=== PATIENT | male | born 1975 | race Caucasian/White ===

== ENCOUNTER 2025-04-11 15:32 | Inpatient (IN) | payer BC, SELFPAY ==
[2025-04-11] VITALS (20 sets, daily range): BP systolic 110–133; BP diastolic 69–93; BMI 23.7
--- NOTE | 2025-04-11 10:12 | ED.GENMED ---
History of Present Illness
<Gilberto Foote PA-C - Last Filed: 04/11/25 15:32>
General
Chief Complaint: Chest Pain
Source: patient and physician
Time Seen by Provider: 04/11/25 10:01
History of Present Illness
History of Present Illness:
49-year-old male with past medical history of CAD status post 2 previous MIs with cardiac stenting and balloon angioplasty presenting to the emergency department for evaluation of 3+ weeks of midsternal chest pain accompanied with shortness of
breath and dyspnea on exertion, symptoms worsening with exertion, contacted his office professional who directed him to the ER today with anticipation of being admitted for cardiac catheterization. Patient reports that presently his pain is about an 8 or
9 out of 10 describing it to be as if something were inserted into his chest but currently denying any shortness of breath. Patient reports he is noncompliant with his aspirin regimen as this medication will often give him reflux, unsure as to the
last time when he took aspirin. He denies any fevers, chills, rigors, cough, pleurisy or hemoptysis, lower extremity edema, abdominal pain, nausea or vomiting. Patient has no other concerns at this time.
Past History
<Gilberto Foote PA-C - Last Filed: 04/11/25 15:32>
Past History
ED Past Medical History: CAD, GERD, PR and Other
ED Past Surgical History: Cardiac and Other (cath)
Social History
Tobacco: Non-smoker
Alcohol: Occasional
Drug: None
Personal:
Living: with family
Employment: Employed ([employer])
Family History
Family History: Early CAD (mother 50s)
Review of Systems
<Gilberto Foote PA-C - Last Filed: 04/11/25 15:32>
Review of Systems
All Other Systems: ROS reviewed and negative except as documented in HPI and ROS
Phy Exam
<Gilberto Foote PA-C - Last Filed: 04/11/25 15:32>
Physical Exam
Physical Exam:
GENERAL: Alert , in no apparent distress
HEAD: Normocephalic atraumatic
EYE: conjunctiva clear
NECK: Supple
ENT: o/p clr, mmm.
CARDIAC: Regular rate and rhythm
LUNGS: Clear breath sounds bilaterally, no acute respiratory distress, no wheezes/rales/rhonchi
NEUROLOGICAL: Alert and oriented
SKIN: Warm and dry, skin intact.
MUSCULOSKELETAL: well perfused.
PSYCH: Normal and appropriate interaction.
Scores
<Gilberto Foote PA-C - Last Filed: 04/11/25 15:32>
Heart Failure Risk
Heart Failure Risk Score: Not Applicable
Heart Score for Chest Pain Patients
STEMI patient?: No
History: Highly Suspicious
ECG: Normal
Age: >45 - <65 years
Risk Factors: >/= 3 Risk Factors or History of CAD
Troponin: </= Normal Limit
Heart Score for Chest Pain Patients: 5
Heart Score Risk: 20.3% MACE over next 6 weeks
Withdrawal Assessment of Alcohol
Withdrawal Assessment Completed?: Not applicable
<Wolf Honeycutt DO - Last Filed: 04/11/25 11:26>
Heart Score for Chest Pain Patients
Heart Score for Chest Pain Patients: 5
Heart Score Risk: 20.3% MACE over next 6 weeks
Course
<Gilberto Foote PA-C - Last Filed: 04/11/25 15:32>
Orders/Labs/Results
Orders:
Orders
04/11/25 09:37
EKG [Electrocardiogram (*1)] Urgent
Reason for Study: Chest Pain
EKG- Treatment ONCE
04/11/25 Lunch
Cholesterol Lowering
Cholesterol Lowering: Sodium, 2 Gram
04/11/25 10:02
CR Chest - 2 Views Urgent
Comment:
Reason For Exam: SOB, HUSTON
04/11/25 10:07
Aspirin Chewable [Low Strength Aspirin] 324 mg PO NOW STA
04/11/25 10:10
Nitroglycerin Sublingual [Nitrostat (Sublingual)] 0.4 mg SL [id number] PRN
04/11/25 10:11
Echo 2D MMode Color/Doppler Urgent
Reason for Study: chest pain, HUSTON
04/11/25 10:14
Complete Blood Count/With Diff Urgent
Comprehensive Metabolic Panel Urgent
NT-proBNP Urgent
Troponin I Urgent
04/11/25 10:21
Heparin 4,000 units IV NOW STA
04/11/25 10:30
Heparin 04646 Units/250 ml 25,000 units in 250 ml IV PER PROTOCOL
Weight to be used for heparin protocol in kilograms (kg):: 83.5
Protocol:: Cardiac Tx/Acute Coronary
PTT Goal Range to be used:: PTT 73 to 111 seconds
Order type:: Initial
INITIAL Infusion Dose (UNITS/KG/hr) & then follow protocol:: 15 units/kg/hr
Infusion Dose in UNITS/hr & then follow protocol (UNITS/hr):: 1,250
INFUSION RATE in mL/hr & then follow protocol (mL/hr):: 12.5
PTT less than or equal to 64 seconds:: Increase rate by 200 units/hr (+ 2 mL/hr)
PTT 64.1 to 72.9 seconds:: Increase rate by 100 units/hr (+ 1 mL/hr)
PTT 73 to 111 seconds:: Target Range. No change in rate.
PTT 111.1 to 130.9 seconds:: Decrease rate by 100 units/hr (- 1 mL/hr)
PTT 131 to 199.9 seconds:: HOLD for 1 hr. Then decrease rate by 200 units/hr (- 2 mL/hr)
PTT greater than or equal to 200 seconds:: HOLD for 2 hrs & Notify Provider. Then decrease by 200 units/hr (-
2 mL/hr)
Lab follow-up:: Each change, PTT q6h until 2 consecutive are therapeutic. Then PTT
daily.
04/11/25 11:04
PTT Urgent
Comment: Obtain baseline before beginning heparin infusion if not already collected
Prothrombin Time Urgent
04/11/25 13:38
Heparin 1000 Units/500 ml [Heparin] 1,000 units in 500 ml .ROUTE .STK-MED
Heparin Sodium,Porcine/Ns/Pf [Heparin 2000 Units/1000 ml] 2,000 unit in 1,000 ml .ROUTE .STK-MED
Lidocaine HCl/Pf [Xylocaine-Mpf 1% Vial] 50 mg .ROUTE .STK-MED ONE
Nitroglycerin [Tridil] 1,500 mcg .ROUTE .STK-MED ONE
Verapamil Injectable [Isoptin/Verapamil Injection] 5 mg .ROUTE .STK-MED ONE
04/11/25 13:43
Fentanyl Citrate/Pf [Sublimaze] 100 mcg .ROUTE .STK-MED ONE
Heparin 10,000 units .ROUTE .STK-MED ONE
Midazolam HCl [Versed] 2 mg .ROUTE .STK-MED ONE
04/11/25 14:30
Clopidogrel Bisulfate [Plavix] 600 mg .ROUTE .STK-MED ONE
04/11/25 14:35
Acetaminophen [Tylenol] 650 mg PO Q4HPRN PRN
04/11/25 14:36
Electrocardiogram (*1) Urgent
Reason for Study: Other
Other Reason for Exam: s/p intervention
Comment: dca
CARDIAC REHAB CONSULT Routine
Co-Sign Provider:
Cardiac Rehab & Exercise Evaluation Referral
Type of Cardiac Rehab Referral: Outpatient
Diagnosis: CAD w/ Unstable Angina
Date of Diagnosis/Surgery: 04/11/25
Referring Provider: Wai Driver
[facility] Rehab Exercise Prescription
The above named person is capable of participating in an intensive cardiac rehab exercise therapy program
under the guidance of the [facility] cardiac rehab staff, outpatient registered dieticians and
supervision of a physician.
ICR Program Objectives:
Provide supervised exercise, cooking classes, nutritional counseling and healthy mind-set education to
improve the function/symptom free work capacity to an optimal level as well as control risk factors to
prevent the progression of heart disease. During the supervised exercise therapy session some or all of
the following may be included in the cardiac rehab session: ECG telemetry, BP, heart rate, rate of
perceived exertion, symptoms/tolerance, cholesterol testing and education. Exercise modalities may
include: treadmill, upright or recumbent bike, spin bike, rowing machine, elliptical, recumbent
elliptical, arm-bike machine, recumbent stepper and free weights.
Intensity:
All CR staff will use ACSM guidelines: Most patients will exercise in the following range: Heart Rate
[place] range of 40% to 80% & Oxygen Uptake reserve range 40-80% (VO2R). Peak heart rate and VO2 are
derived from the cardiac rehab submaximal graded exercise test at RPE of 13/14 out of 20. Initial
intensity range: RPE 11 to 14/20 and may expand to 11 to 16/20.
Duration & Frequency:
If appropriate the patient will be progressed up to 40 minutes of exercise therapy. Patients will be
instructed to come three times a week in cardiac rehab and at a home/other gym to achieve optimal
physical activity/exercies i.e. 4000-10,000 steps per day.
Education:
The patient will receive one-on-one education during their orientation, initial exercise evaluation, ITP
reassessments and discharge session. Each exercise session will also include an education class (30-40
minutes).
Activity As Directed
Activity Level: Out of Bed- Chair
Comment: bed/chair rest for 2 hours then out of bed ad lance
Wafer Slicer Procedure As Directed
Cardiac Cath Procedure: percutaneous coronary intervention
Intake/ Output As Directed
Frequency: Per unit guidelines
Notify MD As Directed
Notify physician if: immediately for chest pain or bleeding from access site(s)
Radial Artery Hemostasis Method As Directed
Instructions:: 3 mL out at 2 hour posts placement of band
3 mL out at 2 1/2 hours post placement of band
3 mL out at 3 hours post placement of band
Off at 3 1/2 hours post placement of band
If any oozing or hemotoma occurs:: re-inflate band and call provider
Site Checks As Directed
Check access site for bleeding/hematoma: Yes
Comment: on arrival, Q15min x4, Q30min x2, Q1 hr x2, Q2 hr x2, Q4 hr or per
protocol
Vascular Checks As Directed
Location: distal to access site - pulse check
Frequency: Other
Comment: on arrival, Q15min x4, Q30min x2, Q1 hr x2, Q2 hr x2, Q4 hr or per protocol
Vital Signs As Directed
Frequency: Other
Additional Instructions:: on arrival, Q15min x4, Q30min x2, Q1 hr x2, Q2 hr x2, then Q4 hr or per unit
protocol
04/11/25 14:45
0.9% Sodium Chloride 1000 ml [Nss] 1,000 ml IV PER PROTOCOL
Infusion rate in mL/kg/hr:: 1.5
Infusion rate in mL/hr:: 125
Duration of infusion (hours):: 5
04/11/25 14:46
Admit/Transfer Patient As Directed
Co-Sign Provider:
Level of Care: Inpatient admission
Assign to:: IVU
Physician / Group: Augusto Tamayo
Diagnosis: Chest pain
Reason for Hospitalization: Chest pain, undergoing left heart cath
Expected length of stay greater than two midnights?: Yes
ELOS- Estimated Length of Stay in days: 3
I certify the patient meets the requirements for IP care: Yes
PRN Pain Medication Management As Directed
May give lesser potent ordered pain med per pt: Yes
preference::
Protocol:: Medication orders for pain may be administered in a
manner that supports deferring to patient preference
when the pt is:
- Requesting an ordered lesser potent pain medication.
Least to most potent pain medications are defined
as: acetaminophen < NSAID < tramadol < opioids
(morphine, oxycodone, hydromorphone).
- Requesting a lesser dose of the same medication IF
ORDERED.
- Requesting a less intrusive route of administration
if both routes are prescribed by the provider (PO <
IV).
04/11/25 14:47
Code Status As Directed
Resuscitation Status: Full Code
Bisacodyl [Dulcolax] 10 mg RECTAL [id number] PRN
Docusate W/Senna [Senokot-S] 1 tablet PO BIDPRN PRN
Polyethylene Glycol Powder [Miralax] 17 grams PO DAILYPRN PRN
Activity As Directed
Activity Level: Out of Bed-Early Mobility
Intake/ Output As Directed
Frequency: Per unit guidelines
Vital Signs As Directed
Frequency: Per unit guidelines
Weight As Directed
Frequency: Daily
DX Deep Vein Thrombosis Video Routine
04/11/25 14:54
Troponin I Q6H
04/11/25 Dinner
Cholesterol Lowering
Cholesterol Lowering: Sodium, 2 Gram
04/11/25 16:00
Heparin 5,000 units SC Q8
04/11/25 18:00
Rosuvastatin Calcium [Crestor] 40 mg PO QPM
04/11/25 21:00
Troponin I Q6H
04/12/25 03:00
Troponin I Q6H
04/12/25 06:00
Electrocardiogram (*1) IN AM
Reason for Study: Other
Other Reason for Exam: s/p intervention
Comment: dca
Basic Metabolic Panel IN AM
Cardiovascular Evaluation IN AM
Complete Blood Count/No Diff IN AM
Glycohemoglobin (HgbA1c) IN AM
Magnesium IN AM
04/12/25 08:00
Aspirin Chewable [Low Strength Aspirin] 81 mg PO DAILY
Clopidogrel Bisulfate [Plavix] 75 mg PO DAILY
Abnormal Lab Results
04/11/25 04/11/25 04/11/25
10:14 14:27 14:46
Monocytes % 10.9 H %
(1.7-9.3)
Glucose 103 H mg/dl
(70-99)
POC ACT Low Range 303 H Seconds 360 H Seconds
(116-155) (116-155)
04/11/25
15:08
Monocytes %
Glucose
POC ACT Low Range 294 H Seconds
(116-155)
04/11/25 10:14
04/11/25 10:14
Vital Signs
Initial and Last Documented VS:
Initial Vital Signs
Temp Pulse Resp BP Pulse Ox
98.3 F 64 18 133/84 99
04/11/25 09:52 04/11/25 09:52 04/11/25 09:52 04/11/25 09:52 04/11/25 09:52
Last Documented Vital Signs
Temp Pulse Resp BP Pulse Ox
98.3 F 54 19 125/77 100
04/11/25 09:52 04/11/25 13:30 04/11/25 13:30 04/11/25 12:00 04/11/25 13:15
<Wolf Honeycutt, DO - Last Filed: 04/11/25 11:26>
Orders/Labs/Results
Orders:
Orders
04/11/25 09:37
EKG [Electrocardiogram (*1)] Urgent
Reason for Study: Chest Pain
EKG- Treatment ONCE
04/11/25 Lunch
Cholesterol Lowering
Cholesterol Lowering: Sodium, 2 Gram
04/11/25 10:02
CR Chest - 2 Views Urgent
Comment:
Reason For Exam: SOB, HUSTON
04/11/25 10:07
Aspirin Chewable [Low Strength Aspirin] 324 mg PO NOW STA
04/11/25 10:10
Nitroglycerin Sublingual [Nitrostat (Sublingual)] 0.4 mg SL [id number] PRN
04/11/25 10:11
Echo 2D MMode Color/Doppler Urgent
Reason for Study: chest pain, HUSTON
04/11/25 10:14
Complete Blood Count/With Diff Urgent
Comprehensive Metabolic Panel Urgent
NT-proBNP Urgent
Troponin I Urgent
04/11/25 10:21
Heparin 4,000 units IV NOW STA
04/11/25 10:30
Heparin 95573 Units/250 ml 25,000 units in 250 ml IV PER PROTOCOL
Weight to be used for heparin protocol in kilograms (kg):: 83.5
Protocol:: Cardiac Tx/Acute Coronary
PTT Goal Range to be used:: PTT 73 to 111 seconds
Order type:: Initial
INITIAL Infusion Dose (UNITS/KG/hr) & then follow protocol:: 15 units/kg/hr
Infusion Dose in UNITS/hr & then follow protocol (UNITS/hr):: 1,250
INFUSION RATE in mL/hr & then follow protocol (mL/hr):: 12.5
PTT less than or equal to 64 seconds:: Increase rate by 200 units/hr (+ 2 mL/hr)
PTT 64.1 to 72.9 seconds:: Increase rate by 100 units/hr (+ 1 mL/hr)
PTT 73 to 111 seconds:: Target Range. No change in rate.
PTT 111.1 to 130.9 seconds:: Decrease rate by 100 units/hr (- 1 mL/hr)
PTT 131 to 199.9 seconds:: HOLD for 1 hr. Then decrease rate by 200 units/hr (- 2 mL/hr)
PTT greater than or equal to 200 seconds:: HOLD for 2 hrs & Notify Provider. Then decrease by 200 units/hr (-
2 mL/hr)
Lab follow-up:: Each change, PTT q6h until 2 consecutive are therapeutic. Then PTT
daily.
04/11/25 11:04
PTT Urgent
Comment: Obtain baseline before beginning heparin infusion if not already collected
Prothrombin Time Urgent
04/11/25 13:38
Heparin 1000 Units/500 ml [Heparin] 1,000 units in 500 ml .ROUTE .STK-MED
Heparin Sodium,Porcine/Ns/Pf [Heparin 2000 Units/1000 ml] 2,000 unit in 1,000 ml .ROUTE .STK-MED
Lidocaine HCl/Pf [Xylocaine-Mpf 1% Vial] 50 mg .ROUTE .STK-MED ONE
Nitroglycerin [Tridil] 1,500 mcg .ROUTE .STK-MED ONE
Verapamil Injectable [Isoptin/Verapamil Injection] 5 mg .ROUTE .STK-MED ONE
04/11/25 13:43
Fentanyl Citrate/Pf [Sublimaze] 100 mcg .ROUTE .STK-MED ONE
Heparin 10,000 units .ROUTE .STK-MED ONE
Midazolam HCl [Versed] 2 mg .ROUTE .STK-MED ONE
04/11/25 14:30
Clopidogrel Bisulfate [Plavix] 600 mg .ROUTE .STK-MED ONE
04/11/25 14:35
Acetaminophen [Tylenol] 650 mg PO Q4HPRN PRN
04/11/25 14:36
Electrocardiogram (*1) Urgent
Reason for Study: Other
Other Reason for Exam: s/p intervention
Comment: dca
CARDIAC REHAB CONSULT Routine
Co-Sign Provider:
Cardiac Rehab & Exercise Evaluation Referral
Type of Cardiac Rehab Referral: Outpatient
Diagnosis: CAD w/ Unstable Angina
Date of Diagnosis/Surgery: 04/11/25
Referring Provider: Wai Driver
[facility]ensive [facility] Rehab Exercise Prescription
The above named person is capable of participating in an intensive cardiac rehab exercise therapy program
under the guidance of the [facility] cardiac rehab staff, outpatient registered dieticians and
supervision of a physician.
ICR Program Objectives:
Provide supervised exercise, cooking classes, nutritional counseling and healthy mind-set education to
improve the function/symptom free work capacity to an optimal level as well as control risk factors to
prevent the progression of heart disease. During the supervised exercise therapy session some or all of
the following may be included in the cardiac rehab session: ECG telemetry, BP, heart rate, rate of
perceived exertion, symptoms/tolerance, cholesterol testing and education. Exercise modalities may
include: treadmill, upright or recumbent bike, spin bike, rowing machine, elliptical, recumbent
elliptical, arm-bike machine, recumbent stepper and free weights.
Intensity:
All CR staff will use ACSM guidelines: Most patients will exercise in the following range: Heart Rate
[place] range of 40% to 80% & Oxygen Uptake reserve range 40-80% (VO2R). Peak heart rate and VO2 are
derived from the cardiac rehab submaximal graded exercise test at RPE of 13/14 out of 20. Initial
intensity range: RPE 11 to 14/20 and may expand to 11 to 16/20.
Duration & Frequency:
If appropriate the patient will be progressed up to 40 minutes of exercise therapy. Patients will be
instructed to come three times a week in cardiac rehab and at a home/other gym to achieve optimal
physical activity/exercies i.e. 4000-10,000 steps per day.
Education:
The patient will receive one-on-one education during their orientation, initial exercise evaluation, ITP
reassessments and discharge session. Each exercise session will also include an education class (30-40
minutes).
Activity As Directed
Activity Level: Out of Bed- Chair
Comment: bed/chair rest for 2 hours then out of bed ad lance
Wafer Slicer Procedure As Directed
Cardiac Cath Procedure: percutaneous coronary intervention
Intake/ Output As Directed
Frequency: Per unit guidelines
Notify MD As Directed
Notify physician if: immediately for chest pain or bleeding from access site(s)
Radial Artery Hemostasis Method As Directed
Instructions:: 3 mL out at 2 hour posts placement of band
3 mL out at 2 1/2 hours post placement of band
3 mL out at 3 hours post placement of band
Off at 3 1/2 hours post placement of band
If any oozing or hemotoma occurs:: re-inflate band and call provider
Site Checks As Directed
Check access site for bleeding/hematoma: Yes
Comment: on arrival, Q15min x4, Q30min x2, Q1 hr x2, Q2 hr x2, Q4 hr or per
protocol
Vascular Checks As Directed
Location: distal to access site - pulse check
Frequency: Other
Comment: on arrival, Q15min x4, Q30min x2, Q1 hr x2, Q2 hr x2, Q4 hr or per protocol
Vital Signs As Directed
Frequency: Other
Additional Instructions:: on arrival, Q15min x4, Q30min x2, Q1 hr x2, Q2 hr x2, then Q4 hr or per unit
protocol
04/11/25 14:45
0.9% Sodium Chloride 1000 ml [Nss] 1,000 ml IV PER PROTOCOL
Infusion rate in mL/kg/hr:: 1.5
Infusion rate in mL/hr:: 125
Duration of infusion (hours):: 5
04/11/25 14:46
Admit/Transfer Patient As Directed
Co-Sign Provider:
Level of Care: Inpatient admission
Assign to:: IVU
Physician / Group: Augusto Tamayo
Diagnosis: Chest pain
Reason for Hospitalization: Chest pain, undergoing left heart cath
Expected length of stay greater than two midnights?: Yes
ELOS- Estimated Length of Stay in days: 3
I certify the patient meets the requirements for IP care: Yes
PRN Pain Medication Management As Directed
May give lesser potent ordered pain med per pt: Yes
preference::
Protocol:: Medication orders for pain may be administered in a
manner that supports deferring to patient preference
when the pt is:
- Requesting an ordered lesser potent pain medication.
Least to most potent pain medications are defined
as: acetaminophen < NSAID < tramadol < opioids
(morphine, oxycodone, hydromorphone).
- Requesting a lesser dose of the same medication IF
ORDERED.
- Requesting a less intrusive route of administration
if both routes are prescribed by the provider (PO <
IV).
04/11/25 14:47
Code Status As Directed
Resuscitation Status: Full Code
Bisacodyl [Dulcolax] 10 mg RECTAL [id number] PRN
Docusate W/Senna [Senokot-S] 1 tablet PO BIDPRN PRN
Polyethylene Glycol Powder [Miralax] 17 grams PO DAILYPRN PRN
Activity As Directed
Activity Level: Out of Bed-Early Mobility
Intake/ Output As Directed
Frequency: Per unit guidelines
Vital Signs As Directed
Frequency: Per unit guidelines
Weight As Directed
Frequency: Daily
DX Deep Vein Thrombosis Video Routine
04/11/25 14:54
Troponin I Q6H
04/11/25 Dinner
Cholesterol Lowering
Cholesterol Lowering: Sodium, 2 Gram
04/11/25 16:00
Heparin 5,000 units SC Q8
04/11/25 18:00
Rosuvastatin Calcium [Crestor] 40 mg PO QPM
04/11/25 21:00
Troponin I Q6H
04/12/25 03:00
Troponin I Q6H
04/12/25 06:00
Electrocardiogram (*1) IN AM
Reason for Study: Other
Other Reason for Exam: s/p intervention
Comment: dca
Basic Metabolic Panel IN AM
Cardiovascular Evaluation IN AM
Complete Blood Count/No Diff IN AM
Glycohemoglobin (HgbA1c) IN AM
Magnesium IN AM
04/12/25 08:00
Aspirin Chewable [Low Strength Aspirin] 81 mg PO DAILY
Clopidogrel Bisulfate [Plavix] 75 mg PO DAILY
Abnormal Lab Results
04/11/25 04/11/25 04/11/25
10:14 14:27 14:46
Monocytes % 10.9 H %
(1.7-9.3)
Glucose 103 H mg/dl
(70-99)
POC ACT Low Range 303 H Seconds 360 H Seconds
(116-155) (116-155)
04/11/25
15:08
Monocytes %
Glucose
POC ACT Low Range 294 H Seconds
(116-155)
04/11/25 10:14
04/11/25 10:14
Vital Signs
Initial and Last Documented VS:
Initial Vital Signs
Temp Pulse Resp BP Pulse Ox
98.3 F 64 18 133/84 99
04/11/25 09:52 04/11/25 09:52 04/11/25 09:52 04/11/25 09:52 04/11/25 09:52
Last Documented Vital Signs
Temp Pulse Resp BP Pulse Ox
98.3 F 54 19 125/77 100
04/11/25 09:52 04/11/25 13:30 04/11/25 13:30 04/11/25 12:00 04/11/25 13:15
<Gilberto Foote PA-C - Last Filed: 04/11/25 15:32>
MDM/Problems Addressed
Differential Diagnosis Includes:
ACS/NSTEMI
Valvular dysfunction
Pericarditis/Myocarditis
PTX
PE
Cardiomyopathy
GERD
Muscular chest wall pain
Medication non-compliance
MDM/Problems Addressed:
49-year-old male presenting to the ER at the request of office professional for evaluation of chest pain and exertional dyspnea that have been gradually worsening over the last few weeks. Arrives hemodynamically stable. Currently reporting chest pain.
Will discuss with cardiology however it appears that plan is to take patient to the cardiac Wafer Slicer later today. Will order aspirin. Will discuss with cardiology initiating nitroglycerin and heparin given the ongoing chest pain.
Chronic conditions affecting care: CAD
Acute Exacerbation and/or Progression of Chronic Illness: CAD
<Gilberto Foote PA-C - Last Filed: 04/11/25 15:32>
*Pulse Oximetry
SaO2: 99
Oxygen Mode of Delivery: Room air
Patient hypoxic: no
*EKG
Heart Rate: 50
Rate: bradycardiac
Rhythm: sinus
[place]arson: normal axis
Ischemia: no ischemia
*Hunter Guide Interpretation
Rate: bradycardiac
Heart Rate: 55
Rhythm: sinus
*Critical Care Note
Total Time (30-74mins, 75-104mins- exclusive of procedures): 35
comment:
Critical care statement: A total of 35 minutes of critical care time was provided for this patient. This includes management of unstable vital signs, evaluation of the patient at bedside, reviewing the patient's pertinent medical records, discussion
with consultants, review of old EKGs and review of pertinent medical records. This time with separate from time utilized to perform the aforementioned documented procedures
Data Reviewed
Review of Other/Old Records Reveals: Labs, Records, Testing and Discharge Summary
Source: patient, records and physician
<Gilberto Foote PA-C - Last Filed: 04/11/25 15:32>
Patient Management
Discussion with other providers: Hospitalist and Candy Dipper
Escalation/DeEscalation of care consider admission/obs:
Case discussed with cardiology who is agreeable to initiating the nitroglycerin and heparin. They are also requesting we order an echocardiogram now. They will be down to see the patient. Hospitalist team to admit patient for further evaluation
and treatment
ED Attending Note
<Gilberto Foote PA-C - Last Filed: 04/11/25 15:32>
-
Portions of this chart may have been created with voice recognition software.� Occasional wrong word or��sound alike� substitutions may have occurred due to the inherent limitations of voice recognition software.
<Wolf Honeycutt DO - Last Filed: 04/11/25 11:26>
ED Attending Note
Patient seen and examined by attending physician: Yes
I performed the substantive portion of visit, reviewed & personally made and approve the management plan that is documented in note by myself or DUTCH.: Yes
ED Attending Note:
The patient reports feeling improved. Plan is for cath later today. I evaluated the patient at bedside. Troponin unremarkable.
Discharge Plan
Departure
Patient Disposition: Admit
Date of Disposition: 04/11/25
Time of Disposition: 11:27
Presentation/result/management discussed w/ accepting MD/DO: Hospitalist
Discharge Problem:
ACS (acute coronary syndrome)
Interventions
Interventions:
*Risk Screen - Suicide Last Done: 04/11/25 09:52
*General Assessment Last Done: 04/11/25 10:20
*Neglect/Abuse Screening Last Done: 04/11/25 09:52
*ED- Fall Risk Assessment Last Done: 04/11/25 10:20
*ED COVID-19 Vaccine History Last Done: 04/11/25 09:52
*ED Influenza Vaccine History Last Done: 04/11/25 09:52
*Nursing Disposition Last Done: 04/11/25 13:15
ED- Cardiac Assessment Last Done: 04/11/25 10:00
Discharge Date and Time
Discharge Date/Time: 04/11/25 13:15
--- NOTE | 2025-04-11 10:15 | W.PN.CARDCBS ---
Addendum entered and electronically signed by Evy Camarena MD 04/11/25 16:48:
I saw and examined the patient.
The Healthcare Management's note was reviewed and I agree with the note.
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
progressive dyspnea on exertion and decreased exercise tolerance presenting to the emergency room given worsening symptoms. Initial troponin is negative.
Vital signs and lab work reviewed. On exam patient is well-appearing, no acute distress, regular rate, normal S1 and S2, no murmurs, rubs or gallops, lungs are clear to auscultation bilaterally, 2+ radial pulse, abdomen is soft, nontender,
nondistended with active bowel sounds, warm extremities without significant edema.
Recommendations:
1. Given concerns for possible anginal equivalents and progressively worsening symptoms concerning for unstable angina, we discussed proceeding with heart catheterization to rule out obstructive CAD especially with strong history of premature
coronary artery disease and multiple cardiovascular risk factors.
2. Agree with medical therapy for ACS with daily baby aspirin, statin and IV unfractionated heparin. Emphasized the importance of medication compliance given history of medication nonadherence.
3. Full echocardiogram to assess biventricular function and rule out any significant valvular abnormalities.
4. Further recommendations based on findings of the heart catheterization.
Evy Camarena MD, [facility], [facility]
Original Note:
Today's Communication / Plan
-
Echo pending
Cardiac catheterization today
aspirin, IV heparin
Impression / Plan
-
Please see office note dated 04/10/25
Primary Fuel Cell Repairer: Dr. RYAN Driver
Assessment:
Presentation with HUSTON, decreased exercise tolerance
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
Hypercholesterolemia
Stress echo 04/18/2017: Negative for ischemia at 22 METS of activity, basal septal and basal inferior hypokinesis at rest which augments with exercise, suggesting viability at site of prior VT, low risk stress test
Plan:
- Patient reports approximately 3 weeks ago while he was still in [place] he was up playing a volleyball game with his friends, which he states was very competitive. Afterwards he became markedly short of breath with associated dizziness and
developed a left-sided chest discomfort which feels as though there is an 'object' in his left chest. He reports it has been relatively constant since that time. He states in general he feels better with exerting himself, however since has had
reduced exercise tolerance. He was seen in cardiology office yesterday and was being arranged for an expedited cardiac catheterization, however then developed worsening shortness of breath and came to ER.
- Initial troponin negative
- EKG sinus bradycardia
- Chest x-ray by my review without acute abnormalities noted
- Echo pending
- Plan for cardiac catheterization today. NPO. He has known multivessel CAD as above with first VT at age 31
- Sublingual nitro x 1 in ER did not improve pain
- Received 324 mg aspirin. IV heparin being started in ER
- Further recommendations pending results of cardiac catheterization
Progress Note - Fuel Cell Repairer
Subjective
Date of Service: April 11, 2025
Reports remains with feeling of 'object' in his left chest
Objective
Vital Signs and I&O:
Vital Signs
Temp Pulse Resp BP Pulse Ox
98.3 F 64 22 129/88 98
04/11/25 09:52 04/11/25 10:07 04/11/25 10:07 04/11/25 10:07 04/11/25 10:07
Vital Signs
Temp Pulse Resp BP Pulse Ox
98.3 F 64 22 129/88 98
04/11/25 09:52 04/11/25 10:07 04/11/25 10:07 04/11/25 10:07 04/11/25 10:07
Physical Exam
Physical Exam
GEN: No distress, awake, alert, oriented x3
HEENT: supple, anicteric, mmm, EOMI
LUNGS: CTA bilaterally, no wheezes/rales
CV: Reg and angie, S1/S2, no murmur
ABD: soft, BS+, NT/ND
EXT: No clubbing, cyanosis, edema
NEURO: Gross non-focal
SKIN: Warm, pink, dry. No rash
[2025-04-11 10:24] LABS: Hematocrit 47.6 % (39.0-52.0); Hemoglobin 16.2 g/dL (13.0-18.0); Mean Corp Hgb Conc. 34.0 g/dL (33.0-37.0); Mean Corpuscular Volume 84.5 fL (80.0-94.0); Nucleated Red Blood Cells % 0 % (-); Platelet Count 244 10^3/uL (130-400); Red Cell Dist. Width 12.3 % (11.5-14.5)
[2025-04-11 10:40] LABS: ALT (SGPT) 29 U/L (0-50); AST (SGOT) 25 U/L (17-59); Albumin 4.8 g/dl (3.5-5.0); Alkaline Phosphatase 59 U/L (38-126); Blood Urea Nitrogen 10 mg/dl (9-20); Calcium 9.6 mg/dl (8.4-10.2); Carbon Dioxide 26 mmol/L (22-30); Chloride 104 mmol/L (98-107); Estimated Creatinine Clearance 113 ml/min; Glucose 103 mg/dl (70-99); Potassium 4.3 mmol/L (3.5-5.1); Sodium 136 mmol/L (135-145); Total Protein 7.7 g/dl (6.3-8.2); eGFR > 60.00
[2025-04-11 10:49] LABS: Troponin I < 0.012 ng/ml
[2025-04-11] MEDS: NITROSTAT (SUBLINGUAL) 0.4 MG SL ×3 (10:58→11:37)
[2025-04-11] MEDS: LOW STRENGTH ASPIRIN 324 MG PO (10:58)
[2025-04-11] MEDS: HEPARIN 25000 UNITS/250 ML IV (11:16)
[2025-04-11] MEDS: HEPARIN 4000 UNITS IV (11:17)
[2025-04-11 11:36] LABS: INR 0.95; PT 13.0 Sec (11.4-14.6)
[2025-04-11 11:37] LABS: APTT 29.3 Sec (23.4-35.0)
[2025-04-11 14:34] LABS: ACT-LR - POC 303 Seconds (116-155)
--- NOTE | 2025-04-11 14:49 | HPS.HSE ---
Family Physician
-
Family Physician: * NONE
Chief Complaint
-
Chest pain
History of Present Illness
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 States his symptoms started close to 3 weeks ago while playing volleyball
with friends. Pain is described as midsternal chest pain that is associated with shortness of breath at rest and with exertion. Noted to have worsening symptoms with exertion. Contacted his financial services assistant who directed him to come to the ED.
Continue to have pain, 02/09 at time of arrival. Reports noncompliance with his home medications including aspirin due to reflux symptoms. Denies other symptoms such as fevers or chills, edema, palpitations, GI or urinary issues, bleeding or
bruising. Upon arrival was hemodynamically stable, afebrile, on room air. ECG in the ED showed sinus bradycardia, Q waves in inferior leads. Troponin negative initially, BNP only 20.1, remainder of labs unremarkable. Chest x-ray was
unremarkable. TTE demonstrated preserved LVEF with wall motion abnormalities to the basal and mid inferior septum, mid inferolateral segment and basal inferior segment. Evaluated by cardiology in the ED who plans for cath today. Was started on
full dose aspirin and IV heparin drip in the ED
Medical History
Past Medical History
Past Medical History: Reports Other
Additional Past Medical History:
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
Dyslipidemia
Medication noncompliance
Past Surgical History: Reports Other
Additional Past Surgical History:
PCI of LAD and LCx
Balloon angioplasty of OM and diagonal branch
Social History
Tobacco: Non-smoker
Alcohol: Occasional
Drug: None
Family History
Family History: Not pertinent
Allergies / Home Medications
Allergies reflects when Allergies were last updated in [employer].
Home Medications with original date entered in [employer]
Allergy/Medication List:
Allergies
Allergy/AdvReac Type Severity Reaction Status Date / Time
No Known Allergies Allergy Verified 04/11/25 09:56
Home Medications
Herbal Supplement 1 tab PO DAILY Supplement 04/11/25
Review of Systems
-
History Source: Patient
A 12 point ROS was completed and negative except as noted: Yes
Constitutional: Reports No Symptoms
EENT: Reports No Symptoms
Respiratory: Reports See HPI
Cardiac: Reports See HPI
Abdomen/GI: Reports No Symptoms
: Reports No Symptoms
Musculoskeletal: Reports No Symptoms
Skin: Reports No Symptoms
Neurological: Reports No Symptoms
Endocrine: Reports No Symptoms
Hematologic/Lymphatic: Reports No Symptoms
Physical Exam
Vital Signs
Vital Signs
Temp Pulse Resp BP Pulse Ox
98.3 F 54 19 125/77 100
04/11/25 09:52 04/11/25 13:30 04/11/25 13:30 04/11/25 12:00 04/11/25 13:15
Physical Exam
General: Well Developed, Well Nourished and No Apparent Distress
HEENT: NormoCephalic, Anicteric and Moist mucous membranes
Respiratory: Clear and Non Labored Respirations; No Accessory Resp Muscle Use
Cardiac: S1/S2 and Regular Rhythm; No Tachycardia, Murmur, Rub, Gallop, Peripheral Edema or JVD
GI: Soft, Non Tender, Non Distended and Normal Bowel Sounds
Musculoskeletal: No Clubbing and No Cyanosis
Skin: Warm and Dry; No Rash
Neuro: AO x 3 and Nonfocal/grossly intact; No Tremors
Psych: Calm
Laboratory Results
-
04/11/25 10:14
04/11/25 10:14
Laboratory Results
PT 13.0 Sec (11.4-14.6) 04/11/25 11:04
INR 0.95 04/11/25 11:04
APTT 29.3 Sec (23.4-35.0) 04/11/25 11:04
Total Bilirubin 0.8 mg/dl (0.2-1.3) 04/11/25 10:14
AST 25 U/L (17-59) 04/11/25 10:14
ALT 29 U/L (0-50) 04/11/25 10:14
Alkaline Phosphatase 59 U/L (38-126) 04/11/25 10:14
Troponin I < 0.012 ng/ml 04/11/25 10:14
Data Reviewed
-
Lab Data: Labs Reviewed by me and Discussed with Physician (Cardiology, emergency department)
Impression/Plan
-
#Chest pain
#CAD s/p PCI and PCTA
#Dyslipidemia
-Question missed UT with negative troponin here, 3 weeks of symptoms, Q waves in inferior leads (no acute ST or T wave changes)
-Typical chest pain with exertional worsening; patient noncompliant with aspirin due to symptoms of GERD/indigestion
-Echocardiogram performed in the ED that showed preserved LVEF though significant WMA similar to previous study
-Started on full dose aspirin and IV heparin drip taken to Screw Machine Setter for coronary angiography
-Cardiology ordered lipid panel for morning of 04/12
Plan
-Follow-up [facility] results, may need to involve CT surgery for CABG planning
-Will need to be on antiplatelet therapy indefinitely, DAPT if stent placed today
-Follow-up a.m. labs for LDL, start statin with LDL goal <70
-Will hold off on beta-diana due to resting HR in the 50s at this time
-Monitor on telemetry following Screw Machine Setter
#Sinus bradycardia
-Heart rate low 50s, sinus upon arrival
-Patient is physically fit and well-conditioned, may be related to his conditioning level
-No role for beta-blockade at this time
-Monitor telemetry as above
#GERD
-Not currently on any medications, states he gets symptoms with aspirin use
-Will start as needed famotidine and see if he tolerates antiplatelet therapy better
-May need to consider PPI, OP GI for potential EGD
#Medication noncompliance
Diet: Low-cholesterol after Screw Machine Setter
Thromboprophylaxis: IV heparin drip for now
CODE STATUS: Full code
Disposition: Admit to IVU
[2025-04-11 14:53] LABS: ACT-LR - POC 360 Seconds (116-155)
[2025-04-11 15:18] LABS: ACT-LR - POC 294 Seconds (116-155)
[2025-04-11 15:45] LABS: Troponin I < 0.012 ng/ml
--- NOTE | 2025-04-11 16:00 | PTCARENOTE ---
Patient relieved from the pathology laboratory aide awake and alert times 3. SB HR 40-50's, 120/75. Right TR band in place with 12 cc of air. Oriented to room and call cramer placed in reach
--- NOTE | 2025-04-11 16:11 | CM ---
Chart reviewed. Patient is independent of ADLS, lives with his in [place] here visiting and suppose to fly home tonight. Patient lives in a [address], [address], 0 DME. Plan is to return home. CM to follow
--- NOTE | 2025-04-11 16:45 | ITS.CL.CATH ---
Appliance Worker - Catheterization
Cardiac Catheterization
Procedure Report:
LEFT HEART CATHETERIZATION AND CORONARY INTERVENTION
Date of Procedure: April 11, 2025
Referring: Wai Hurst MD
PROCEDURES:
1. Left heart catheterization, coronary angiogram.
2. Moderate sedation.
3. IV L shockwave.
4. Successful percutaneous coronary artery intervention of a hazy 90% in-stent restenosis in the proximal left circumflex with prior PCI, treated with one 3.5 x 18 mm Medtronic Hansel frontier drug-eluting stent, postdilated using IVUS guidance with
a 3.5 mm NC balloon at high pressures with an excellent angiographic and IVUS based result.
5. Intravascular ultrasound (IVUS)
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
ongoing progressive dyspnea on exertion and decreased exercise tolerance presenting to the emergency room given worsening symptoms. Initial troponin is negative. Given concern for progressive symptoms that could be anginal equivalent with prior
premature
ACCESS: Right radial artery, 6Fr. sheath, under US guidance.
HEMODYNAMICS : (mmHg)
AO (s/d) : 107/60
LVEDP : 21
No significant gradient across the aortic valve to suggest aortic stenosis.
CORONARY FINDINGS
Dominance: Right
Left Main Trunk (LMT): Large caliber vessel that gives rise to the LAD and LCx branches and is free of angiographic disease.
Left Anterior Descending Artery (LAD): Large caliber vessel that gives off 2 major diagonal branches as it courses along the anterior inter-ventricular groove before wrapping around the cardiac apex. Previously placed mid LAD stent is widely
patent. There is mild diffuse atherosclerotic plaque with left to right collaterals.
Left Circumflex Artery (LCx): Large caliber vessel that gives off 2 major obtuse marginal (OM) branches as it courses along the atrio-ventricular (AV) groove. Proximal left circumflex has a hazy 90% in-stent restenosis which is thought to be the
culprit of presenting symptoms and was intervened upon as noted below. Of small caliber wrangell left circumflex artery provides collaterals to the right posterolateral system.
Right Coronary Artery (RCA): Large caliber dominant vessel that gives rise to the posterior descending artery (RPDA) and postero-lateral ventricular (RPLV) branches distally. There is no difference on chronic total occlusion with robust right to
right collaterals and [id number] collaterals.
CORONARY INTERVENTION: The left coronary artery was selectively engaged using a 6 Lao EBU 3.75 guide catheter. Additional heparin was given to maintain therapeutic ACT throughout the case. A 190 cm 0.014 run-through wire was advanced into the
distal OM branch. The lesion in the proximal left circumflex artery was predilated initially using a 3.0 x 12 mm semicompliant balloon followed by a 3.5 mm NC balloon with some residual stenosis and therefore decision was made to proceed with IV L
shockwave using a 3.5 mm shockwave balloon. All 12 pulses were delivered within the stent at the stenotic portion with good expansion. After IV L shockwave, the lesion was stented using a 3.5 x 18 mm Medtronic Hansel frontier drug-eluting stent and
the stent was postdilated using IVUS guidance with a 3.5 mm NC balloon at high pressures with an excellent angiographic and IVUS based result. Patient was loaded with 60 mg of Plavix at the end of the case. He tolerated the procedure well with no
acute complications.
SEDATION:67 minutes of procedural sedation was utilized. IV Midazolam and IV Fentanyl were administered. An independent medical billing representative was present to assist with and help manage the patient's level of consciousness and physiologic status.
RADIATION SUMMARY: Fluoro Time (min): 15.5, Dose (mGy): 694.7, DAP (Gy.cm2) : 36.5
Closure Device: There were no immediate intra-procedural complications. The sheath was pulled in the laborer bituminous paving and a vascular-band applied to the right wrist for radial artery hemostasis using the patent hemostasis technique.
CONCLUSIONS
1. Successful percutaneous coronary artery intervention of a hazy 90% in-stent restenosis in the proximal left circumflex with prior PCI, treated with one 3.5 x 18 mm Medtronic [place] frontier drug-eluting stent, postdilated using IVUS guidance with a
3.5 mm NC balloon at high pressures with an excellent angiographic and IVUS based result.
2. LVEDP of 21 mmHg.
RECOMMENDATIONS
1. Wean radial band per protocol. Monitor right hand perfusion and for bleeding from the radial site following removal of the vascular-band following trans-radial access.
2. Continue aggressive medical therapy and risk factor modification for secondary CAD prevention.
3. Continue ASA 81 mg daily for life.
4. Continue clopidogrel for at least 12 months of uninterrupted dual anti-platelet therapy given drug-eluting stent (BOSTON) implantation to mitigate the risk of stent thrombosis. This is not to be stopped for any reason without the guidance of a
aviation technician. Strongly emphasized importance of medication compliance.
5. Hydrate with normal saline to mitigate the risk of contrast-induced acute kidney injury.
6. Referral for outpatient cardiac rehab.
7. Follow-up with Dr. Wai hurst.
Evy Camarena MD, [facility], [facility]
Copy to: Dr. Wai hurst
[2025-04-11] MEDS: CRESTOR 40 MG PO (17:20)
[2025-04-11] MEDS: HEPARIN SC (17:40)
[2025-04-11 21:56] LABS: Troponin I 0.060 ng/ml
[2025-04-11] MEDS: TYLENOL 650 MG PO (23:09)
[2025-04-11] MEDS: HEPARIN 5000 UNITS SC (23:09)
--- NOTE | 2025-04-12 00:27 | PTCARENOTE ---
Received pt at change of shift resting in bed. SB with PVC's on tele, HR 40's-50's. TR band removed @ 2010, dressing placed, C/D/I, no bleeding or hematoma noted at this time. pt c/o 1/10 left-sided chest pain when laying flat and 2/10 when laying
on left side. pt states it 'feels muscular because I play volleyball.' EKG obtained, PRN Tylenol administered. [place] CVNIKKI made aware. No further orders at this time. pt reports relief w/ Tylenol and now has no pain. Encouraged pt to call
RN if chest pain reoccurs. Call cramer within reach.
[2025-04-12 03:38] VITALS: BP 114/72
[2025-04-12 04:13] VITALS: BMI 23.2
[2025-04-12 04:39] LABS: Hematocrit 43.3 % (39.0-52.0); Hemoglobin 15.1 g/dL (13.0-18.0); Mean Corp Hgb Conc. 34.9 g/dL (33.0-37.0); Mean Corpuscular Volume 85.1 fL (80.0-94.0); Platelet Count 231 10^3/uL (130-400); Red Cell Dist. Width 12.3 % (11.5-14.5)
[2025-04-12 05:06] LABS: Blood Urea Nitrogen 12 mg/dl (9-20); Calcium 9.3 mg/dl (8.4-10.2); Carbon Dioxide 24 mmol/L (22-30); Chloride 104 mmol/L (98-107); Estimated Creatinine Clearance > 125 ml/min; Glucose 87 mg/dl (70-99); HDL Cholesterol 43 mg/dl; LDL Cholesterol, Calculated 221 mg/dl; Magnesium 1.9 mg/dl (1.6-2.3); Potassium 4.2 mmol/L (3.5-5.1); Sodium 135 mmol/L (135-145); Very Low Density Lipoprotein 37 mg/dl (0-30); eGFR > 60.00
[2025-04-12 05:22] LABS: Troponin I 0.225 ng/ml
[2025-04-12] MEDS: LOW STRENGTH ASPIRIN 81 MG PO (07:48)
[2025-04-12] MEDS: PLAVIX 75 MG PO (07:48)
[2025-04-12] MEDS: HEPARIN 5000 UNITS SC (07:48)
[2025-04-12 07:53] VITALS: BP 127/76
--- NOTE | 2025-04-12 08:46 | W.PN.CARDCBS ---
Addendum entered and electronically signed by Nick Mendez DO 04/12/25 09:44:
I saw and examined the patient.
The Rural Carrier's note was reviewed and I agree with the note.
Comment:
Patient is status post circumflex PCI on 04/11/2025 reporting no chest pain, shortness of breath, or weakness
Telemetry shows sinus bradycardia, sinus rhythm; EKG sinus rhythm without ST-T abnormality with old inferior infarct pattern
A/P as below
Will trend troponin to peak; if downtrending, likely stable for discharge with outpatient follow-up and cardiac rehab. If uptrending, would then recommend trending troponin to peak with plan discharge likely 04/13/2025 if stable and troponin
improving
Continue aspirin, Plavix, Crestor
Monitor on telemetry while admitted
Original Note:
Today's Communication / Plan
-
s/p circ PCI
trend trops to peak
continue asa, plavix, crestor
cardiac rehab
OP cardiac follow up arranged
possible DC to home later today vs in AM
Impression / Plan
-
Please see office note dated 04/10/25
Primary Job Press Operator: Dr. RYAN Driver
Assessment:
Presentation with HUSTON, decreased exercise tolerance
NSTEMI status post in-stent restenosis of proximal left circumflex
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
Hypercholesterolemia
Sinus bradycardia
Medication noncompliance
Stress echo 04/18/2017: Negative for ischemia at 22 METS of activity, basal septal and basal inferior hypokinesis at rest which augments with exercise, suggesting viability at site of prior MA, low risk stress test
Echo 04/11/2025: EF 50 to 55%, basal and mid inferior septum, mid inferolateral segment and basal inferior segment abnormal, no significant valvular disease
Plan:
- Patient presented with complaints of dyspnea on exertion and decreased exercise tolerance over the last several months
- Ruled in for NSTEMI. Status post in-stent circumflex restenosis with stenting. Troponin this morning 0.2. Trend to peak
- continue asa, plavix. reviewed importance of these medications in keeping his stents open
- Remains in sinus bradycardia on review of telemetry overnight. He reports his baseline heart rate is normally in the 40s. No evidence of pauses or high-grade AV block. cannot give BB due to this.
- We discussed importance of medication compliance. He reports he had stopped his outpatient statin as his was concerned about dementia as a result of high-dose statin therapy. He understands the importance of taking this medication moving
forward given his significant genetic predisposition to CAD
- echo results reviewed with patient, as above, EF preserved
- pending trop trend, consider for DC later today vs in AM
- cardiac rehab
- it was discussed with patient yesterday that he should not fly for 1 week
- OP cardiac follow up arranged
Progress Note - Job Press Operator
Subjective
Date of Service: April 12, 2025
no issues overnight. states he feels '10 years younger'
Objective
Labs:
04/12/25 03:52
04/12/25 03:52
Labs
Hgb 15.1 g/dL (13.0-18.0) 04/12/25 03:52
Hct 43.3 % (39.0-52.0) 04/12/25 03:52
Plt Count 231 10^3/uL (130-400) 04/12/25 03:52
PT 13.0 Sec (11.4-14.6) 04/11/25 11:04
INR 0.95 04/11/25 11:04
APTT 29.3 Sec (23.4-35.0) 04/11/25 11:04
Sodium 135 mmol/L (135-145) 04/12/25 03:52
Potassium 4.2 mmol/L (3.5-5.1) 04/12/25 03:52
BUN 12 mg/dl (9-20) 04/12/25 03:52
Creatinine 0.8 mg/dL (0.7-1.3) 04/12/25 03:52
Glucose 87 mg/dl (70-99) 04/12/25 03:52
Troponins
04/11/25 04/11/25 04/11/25
10:14 14:54 21:10
Troponin I < 0.012 < 0.012 0.060 H* D
04/12/25
03:52
Troponin I 0.225 H* D
Vital Signs and I&O:
Vital Signs
Temp Pulse Resp BP Pulse Ox
97.9 F 46 16 127/76 95
04/12/25 03:38 04/12/25 07:53 04/12/25 03:38 04/12/25 07:53 04/12/25 08:35
Vital Signs
Temp Pulse Resp BP Pulse Ox
97.9 F 46 16 127/76 95
04/12/25 03:38 04/12/25 07:53 04/12/25 03:38 04/12/25 07:53 04/12/25 08:35
Intake & Output
04/10/25 04/11/25 04/12/25 04/13/25
07:59 07:59 07:59 07:59
Intake Total 980 / 980
Balance 980 / 980
Physical Exam
Physical Exam
GEN: No distress, awake, alert, oriented x3
HEENT: supple, anicteric, mmm, eomi
LUNGS: CTA B/L, no wheezes/rales
CV: Reg and angie, S1/S2, no murmur
ABD: soft, BS+, NT/ND
EXT: No cyanosis, clubbing, edema
NEURO: Gross non-focal
SKIN: Warm, pink, dry. No rash. R wrist site c/d/i
[2025-04-12 08:54] LABS: Glycohemoglobin (HgbA1c) 5.4 % (4.0-5.6)
[2025-04-12 10:02] LABS: Troponin I 0.270 ng/ml
--- NOTE | 2025-04-12 10:14 | PTCARENOTE ---
Assumed care of patient at the change of shift. Pt AAOX3. Pt denies chest pain/ SOB. SB on nail polish brush machine feeder. Pt asymptomatic. Pox: 97% RA. Call cramer within reach. Plan of care ongoing.
--- NOTE | 2025-04-12 10:27 | W.PN.HOSP.TC ---
Today's Communication/Plan
-
Trend troponin on telemetry
DAPT and statin
Encourage medication compliance
Assessment / Plan
Assessment / Plan
#CAD s/p LCx PCI
#H/O LAD and LCx PCI and PTCA
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
#Dyslipidemia
-Question missed NV with negative troponin here, 3 weeks of symptoms, Q waves in inferior leads (no acute ST or T wave changes)
-Typical chest pain with exertional worsening; patient noncompliant with aspirin due to symptoms of GERD/indigestion
-Echocardiogram performed in the ED that showed preserved LVEF though significant WMA similar to previous study
-Started on full dose aspirin and IV heparin drip taken to Member Service Representative for coronary angiography
-Had LCx PCI performed on 04/11 due to in-stent restenosis
-LDL found to be >200 on labs this morning
Plan
-Continue with DAPT for 1 year
-Continue high intensity statin with LDL goal <70, may need ezetimibe v. PCSK9i
-Follow-up with family doctor and cardiology to consider familial hypercholesterolemia testing
-Will hold off on beta-diana due to resting HR in the 50s at this time
-Trend troponin with serial ECG until troponin level peaks
-Monitor on telemetry while here
#Sinus bradycardia
-Heart rate low 50s, sinus upon arrival
-Patient is physically fit and well-conditioned, may be related to his conditioning level
-No role for beta-blockade at this time
-Monitor telemetry as above
#GERD
-Not currently on any medications, states he gets symptoms with aspirin use
-Will start as needed famotidine and see if he tolerates antiplatelet therapy better
-May need to consider PPI, OP GI for potential EGD
#Medication noncompliance
Diet: Low-cholesterol after Member Service [facility]
Thromboprophylaxis: IV heparin drip for now
CODE STATUS: Full code
Disposition: Possible discharge home today if troponin downtrending
Anticipated Discharge: Within 24 hours
Subjective/Interval History
-
Date of Service: April 12, 2025
Seen and examined at the bedside. No acute events reported overnight. AFVSS this morning
Troponin slightly elevated following LHC yesterday, repeat pending. No events on telemetry
Patient states he feels very well and denies chest pain, dyspnea, anginal equivalents. Eager for discharge from hospital
Objective Data
-
Labs:
Laboratory Results
04/12/25
03:52
WBC 6.9
Hgb 15.1
Hct 43.3
Plt Count 231
Sodium 135
Potassium 4.2
Chloride 104
Carbon Dioxide 24
BUN 12
Creatinine 0.8
Glucose 87
Calcium 9.3
Vital Signs:
Vital Signs
Temp Pulse Resp BP Pulse Ox
98.3 F 46 18 127/76 95
04/12/25 07:45 04/12/25 07:53 04/12/25 07:45 04/12/25 07:53 04/12/25 08:35
I&O
04/11/25 04/12/25 04/13/25
06:59 06:59 06:59
Intake Total 980 / 980
Balance 980 / 980
Review of Systems
-
History Source: Patient
All other systems: Reviewed and negative
Physical Exam
-
General: Well Developed, No Apparent Distress and Comfortable
HEENT: Normocephalic, Atraumatic, Moist Mucous Membranes and Anicteric
Respiratory: Clear to Auscultation and Non Labored Respirations; Negative Accessory Resp Muscle Use
Cardiac: Regular Rhythm and S1/S2; Negative Murmur, Rub, JVD or Gallop
GI: Soft, Nontender, Nondistended and Normal Bowel Sounds
Musculoskeletal: No Clubbing, No Cyanosis and No Edema
Skin: Warm and Dry; Negative Rash
Neuro: AO x 3, Nonfocal/Grossly Intact and Central Nerve's Intact
Psych: Calm
Data Reviewed
-
Labs: Labs Reviewed by me, Discussed with Physician (Cards), Discussed with Patient and Discussed with Family
[2025-04-12 12:43] VITALS: BP 149/93
[2025-04-12 13:43] LABS: Troponin I 0.292 ng/ml
--- NOTE | 2025-04-12 14:45 | W.DCSUMMARY ---
Discharge Summary
Discharge Data
Date of Admission: 04/11/25
Date of Discharge: 04/12/25
Total time spent discharging patient (in min): 31
-
Pending Results: No
Hospital Course
Discharging physician: Augusto Tamayo DO
Discharge disposition: AGAINST MEDICAL ADVICE (patient's prescriptions were still sent to pharmacy despite AMA)
Primary Hospital diagnosis:
Obstructive CAD s/p LCx PCI
In-stent restenosis of previous proximal LCx stent
Medication noncompliance
Dyslipidemia
Chronic discharge diagnoses:
CAD s/p PCI of LAD and LCx
Chronic total occlusion of RCA
Dyslipidemia
Hospital course:
49-year-old male with CAD s/p PCI of his LCx and LAD that presented with chest pain over 3 weeks time. Troponin gradually uptrending, ECGs without acute ischemic change. Underwent echocardiogram that showed wall motion abnormalities consistent
with previous findings. Cardiology was consulted and started him on IV heparin drip prior to coronary angiography. Was taken to the [facility] Super[facility] on 04/11/2025 and was determined to have in-stent restenosis to his proximal LCx stent, was intervened on
with new stent placed. Patient noted to be noncompliant with medications, was started on DAPT, statin and encouraged to remain compliant. LDL came back at 221. 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
for familial hypercholesteremia and possibly PCSK9 if needed. LDL goal <70.
Consultants:
General Cardiology: Nick Adam DO
satellite installer: Evy Camarena MD
Pertinent imaging findings:
Echocardiogram (04/11/2025)
1. Normal left ventricular size and low normal left ventricular function.
2. Ejection fraction is 50-55% by visual assessment.
3. LV Wall Motion: basal and mid inferior septum, mid inferolateral segment, and basal inferior segment are abnormal, as described below.
4. Right ventricular size and systolic function are within normal limits.
5. No significant valvular disease.
6. Compared to a prior transthoracic echocardiogram study from 03/02/16 no significant changes are seen.
Procedure reports:
Left heart catheterization and coronary angiography (04/11/2025)
satellite installer: Evy Camarena MD
Conclusions:
1. Successful percutaneous coronary artery intervention of a hazy 90% in-stent restenosis in the proximal left circumflex with prior PCI, treated with one 3.5 x 18 mm Medtronic Hansel frontier drug-eluting stent, postdilated using IVUS guidance with a
3.5 mm NC balloon at high pressures with an excellent angiographic and IVUS based result.
2. LVEDP of 21 mmHg.
Follow-up:
Family doctor in 1 week, referral provided
Executive Vice President on 05/07/25
Discharge Plan
-
Patient Disposition: Home (Routine Discharge)
Discharge Diagnosis/Procedures: Shockwave with angioplasty and stent to Left Circumflex artery
Condition: Good
Diet: Low Cholesterol
Driving Restrictions: No driving for 24 hours
Bathing Restrictions: None
Blood Work: Repeat lipid panel in 3 months with family doctor
Other Services: Cardiac Rehab
Stand Alone Forms: DC Instructions- Cath/EP Lab
Referrals:
[facility] [Outside] - in less than 1 week
Referral Note: Family doctor referral
Rhonda Thomas PA-C [Specified Professional Personl, Cardiology] - 05/07/25 7:40 am
NONE,* [Family Provider, Internal Medicine]
Additional Discharge Medication Instructions: Take aspirin 81 mg and clopidogrel 75 mg every day for 1 year
Take rosuvastatin 40 mg every night indefinitely
Use nitroglycerin as needed for chest discomfort contact your pipe assembly worker if chest discomfort does not improve after 3 doses
When you run out of these medications contact your family doctor or pipe assembly worker for refills. You need to take these medications indefinitely in order to prevent future heart attacks. If you stop any of these medications you are risk of heart
attack goes up significantly
Prescriptions:
New
rosuvastatin 20 mg Tablet
40 mg PO QPM 30 Days Qty: 60 0RF
aspirin 81 mg Tablet,Chewable
81 mg PO DAILY 30 Days Qty: 30 0RF
nitroglycerin 0.4 mg Tablet, Sublingual
0.4 mg sublingual [id number] PRN (Reason: ANGINA) Qty: 30 0RF
clopidogrel 75 mg Tablet
75 mg PO DAILY 30 Days Qty: 30 0RF
Continued
Herbal Supplement
1 tab PO DAILY
omega-3 fatty acids Capsule
PO
Discontinued
rosuvastatin [Crestor] 40 mg Tablet
40 mg PO DAILY
Care Plan Goals
Care Plan Goals:
Problem: Readiness for enhanced knowledge related to diagnosis and treatment plan
Goal: Understand your diagnosis and treatment plan needs, including medications if applicable.
Instructions: Know your diagnosis, underlying causes and treatment plan options, including medications if applicable. Consult with your health care team to learn about your diagnosis and treatment plan, including medications if applicable.
Discharge Date and Time
Print Language: WOLOF
--- NOTE | 2025-04-12 14:46 | PTCARENOTE ---
Patient has stated he is leaving against medical advice (AMA). Pt AAOX3. Refusing further treatment. Dr. Tamayo notified via TT. Pt has signed AMA form.
== END 2025-04-12 14:30 | disposition left against medical advice (07) | DRG 324 ==
LOC: IVU 15:32
PROVIDERS: Internal Medicine Interventional Cardiology; Nurse Practitioner; Physician Assistant Medical; ADMITTING PHYSICIAN Internal Medicine; EMERGENCY PHYSICIAN Emergency Medicine
PROC: 4A023N7 Measurement of Cardiac Sampling and Pressure, Left Heart, Percutaneous Approach (ICD-10-PCS; 2025-04-11)
PROC: 027034Z Dilation of Coronary Artery, One Artery with Drug-eluting Intraluminal Device, Percutaneous Approach (ICD-10-PCS; 2025-04-11)
PROC: 02F03ZZ Fragmentation in Coronary Artery, One Artery, Percutaneous Approach (ICD-10-PCS; 2025-04-11)
PROC: B2111ZZ Fluoroscopy of Multiple Coronary Arteries using Low Osmolar Contrast (ICD-10-PCS; 2025-04-11)
PROC: B240ZZ3 Ultrasonography of Single Coronary Artery, Intravascular (ICD-10-PCS; 2025-04-11)
DX: T82.855A Stenosis of coronary artery stent, initial encounter (principal); I25.110 Atherosclerotic heart disease of native coronary artery with unstable angina pectoris; Z91.148 Patient's other noncompliance with medication regimen for other reason; E78.5 Hyperlipidemia, unspecified; Y83.1 Surgical operation with implant of artificial internal device as the cause of abnormal reaction of the patient, or of later complication, without mention of misadventure at the time of the procedure; K21.9 Gastro-esophageal reflux disease without esophagitis; I10 Essential (primary) hypertension; Z82.49 Family history of ischemic heart disease and other diseases of the circulatory system; Z53.29 Procedure and treatment not carried out because of patient's decision for other reasons
CPT/HCPCS: 71046; 80048; 80053; 80061; 83036; 83735; 83880; 84484; 85025; 85027; 85347; 85610; 85730; 92972; 92978; 93005; 93306; 93458; 96365; 96366; 99152; 99153; 99291; C1725; C1761; C1769; C1874; C1894; C9600; Q9967